=== PATIENT | female | born 1970 | race Caucasian/White ===

== ENCOUNTER → 2017-11-30 10:29 | Outpatient (CLI) | payer OTHER, SELFPAY ==
--- NOTE | 2017-11-30 10:36 | MRI_ITS ---
STUDY: MRI ABDOMEN WITH CONTRAST REASON FOR EXAM: Female, 47 years old. HEMANGIOMA recheck, lesion liver determined to be hemangioma at [facility], has rt side abd and back pain TECHNIQUE: Standardized fat and water weighted pulse sequences were obtained in all 3 orthogonal planes post contrast administration. 8 ml of Gadavist contrast material was administered intravenously. COMPARISON: 09.26.16 mri images with report included with the images. FINDINGS: The visualized lung bases are unremarkable. The visualized portions of the heart are within normal limits. Lobulated T2 hyperintense lesion in the inferior right lobe of the liver. This measures 40 x 33 mm. This does not demonstrate signal dropout on in and out of phase images. Initial contrast examination demonstrates peripheral filling. 4.5 mm T2 hyperintense lesion in the right lobe of the liver. Series 5 image 11. 9.3 mm T2 hyperintense lesion in the left lobe of the liver. Series 5 image 9. Symmetrical focal lesions. Enhancing nodules in the gallbladder suggesting polyps. Normal spleen. Normal pancreas. Normal bilateral adrenal glands. Normal right kidney. Normal left kidney. There is a large hiatal hernia composed mostly of the fundus of the stomach. Normal small intestine. Stool throughout the colon. There is non-visualization of the appendix. There is diffuse atherosclerotic calcification of the abdominal aorta, without a demonstrated aneurysm. Normal inferior vena cava. Normal retroperitoneum. Normal abdominal wall. There are diffuse degenerative changes of the visualized lumbar spine. MRI/MRI Abd WITH and W/O Contrast IMPRESSION: There are 3 visualized lesions in the liver. The largest lesion in the right lobe of the liver correlates with a hemangioma. The 2 smaller lesions in the right and left lobe of the liver enhanced. However it is difficult to discern the enhancement pattern due to their small size. These may also be hemangiomas. Gallbladder polyps. Constipation Electronically Signed: Brian Tom MD at 16:38 EST , Service support ,
== END ==
PROVIDERS: Family Provider Family Medicine; PCP Family Medicine; Visit Provider Internal Medicine Gastroenterology
DX: D18.00 Hemangioma unspecified site (principal)
CPT/HCPCS: 74183; A9585; A4216

== ENCOUNTER → 2018-08-22 15:50 | Outpatient (CLI) | payer OTHER, SELFPAY ==
[2018-08-28 14:09] LABS: HPV Reflexed? NOT INDICATED
== END ==
PROVIDERS: Visit Provider Obstetrics & Gynecology
DX: Z12.4 Encounter for screening for malignant neoplasm of cervix (principal)
CPT/HCPCS: 87624; 88175; G0145

== ENCOUNTER → 2020-11-24 11:30 | Outpatient (CLI) | payer OTHER, SELFPAY ==
[2020-11-27 20:48] LABS: HPV Reflexed? NOT INDICATED
== END ==
PROVIDERS: Visit Provider Obstetrics & Gynecology
DX: Z12.4 Encounter for screening for malignant neoplasm of cervix (principal)
CPT/HCPCS: 88175; G0145

== ENCOUNTER 2020-12-22 11:33 | Day surgery (SDC) | payer OTHER, SELFPAY ==
[2020-12-22] VITALS (7 sets, daily range): BP systolic 94–133; BP diastolic 68–79; PULSE 78–107; RESP 16; TEMP 36.6–36.8; O2SAT 97–100; BMI 29.7
[2020-12-22] MEDS: Lactated Ringers 1,000 ML 100 ML IV (12:00)
[2020-12-22 12:11] LABS: Internal QC Validated? YES +Cl - CLEAR BKGD; Pregnancy, Urine Negative Negative
--- NOTE | 2020-12-22 12:45 | EGD_PTH ---
PATIENT: CARLENE MEMBRENO LOC: EN U#:[id number] AGE/SX: 50/F ROOM: RE12/22/[address]: Dr. Ethan Yanez MD : 1970 BED: DIS: 12/22/2020 SPEC #: [id number] RECD: 12/22/20 13:44 STATUS: SHARONDA RE #: [id number] NATALIE: 12/22/20 12:[address]: Ethan Yanez DEPT: SURGICAL PATHOLOGY RECD BY: Violeta Peacock ENTERED: 12/23/20 07:35 SP TYPE: EGD BIOPSY OTHR DR: Dr. Hans Jett MD Tissues: Gastric mucous membrane Procedures: Surgery Specimen Level IV HEADER OPERATION: EGD - PH probe (MAC) PRE-OP DIAGNOSIS: GERD TISSUE SUBMITTED: Antrum biopsy for histo and H. pylori MICROSCOPIC DIAGNOSIS Antrum biopsy: Mild gastritis. See microscopic description and comment. SJ:kaylee 12/24/2020 COMMENT The results of immunohistochemistry for Helicobacter pylori will be reported separately ([id number]). MICROSCOPIC DESCRIPTION Slides are reviewed. The specimen shows fragments of gastric mucosa with chronic inflammatory cell infiltrates in the lamina propria consisting of lymphocytes and plasma cells, consistent with mild chronic gastritis. GROSS DESCRIPTION Received in fixative is one container labeled with the patient's name and designated antrum biopsy. The specimen consists of one irregular fragment of light gómez soft tissue that measures 0.3 x 0.3 x 0.1 cm. The specimen is totally submitted in one cassette. / RUDI:kaylee 12/23/20 TC:3 CPT: 28890
--- NOTE | 2020-12-22 12:45 | IMM_PTH ---
PATIENT: CARLENE MEMBRENO LOC: EN U#:[id number] AGE/SX: 50/F ROOM: RE12/22/[address]: Dr. Ethan Yanez MD : 1970 BED: DIS: 12/22/2020 SPEC #: [id number] RECD: 12/23/20 09:35 STATUS: SHARONDA REQ #: [id number] NATALIE: 12/22/20 12:[address]: Ethan Yanez DEPT: IMMUNOHISTOCHEMISTRY RECD BY: Neda Alvarado ENTERED: 12/23/20 09:36 SP TYPE: IMMUNO OTHR DR: Dr. Hans Jett MD Tissues: Stomach, NOS Procedures: H Pylori (initial) PHYSICIAN & INSTITUTION [place] [id number] SPECIMEN INFORMATION: Tissue Source: Antrum biopsy Clinical Info: GERD Specimen Number: [id number] CPT code: 07739 METHODOLOGY: Deparaffinized sections of prefer/formalin-fixed tissue or PAP/DQ stained slides are incubated with monoclonal/polyclonal antibodies/oligonucleotide probes. Localization is made via biotin free immunoperoxidase method. Appropriate controls are performed and reacted as expected. Results on target cell population are indicated in the following table: RESULTS: ANTIBODY / CLONE RESULT H Pylori (polyclonal) negative These tests were developed and their performance characteristics determined by [facility]. They may not have been cleared or approved by the U.S. Food and Drug Administration. The FDA has determined that such clearance or approval is not necessary. INTERPRETATION: Antrum, biopsy: Negative for Helicobacter pylori organisms. RUDI:kaylee 12/24/2020
--- NOTE | 2020-12-22 13:02 | PCM.HP.BLA ---
History and Physical Date of Admission: 12/22/20 HISTORY AND PHYSICAL ? Michelle Granados 1970 ? REFERRING PHYSICIAN: ??Claritza Childers PA ? CHIEF COMPLAINT:???Gastroesophageal reflux disease, unspecified whether esophagitis present ?(primary encounter diagnosis)? ? HPI: The patient is a 50 year old female referred for endoscopy. ?Michelle notes no history of colon complaints. ? The patient??notes the following upper complaints:???Michelle?denies abdominal pain.. ?Michelle notes?heartburn. ??Michelle denies?dysphagia. ?Michelle denies?a history of ulcers/ peptic ulcer disease. ? ? Michelle?has??undergone prior endoscopy. ?Patient had an EGD by Dr. Puga in 2017. ?She was told that she has a hiatal hernia. ? The patient is being seen by me today at the request of DrLenin?MAURA Romero?for my opinion and advice regarding Gastroesophageal reflux disease, unspecified whether esophagitis present ?(primary encounter diagnosis).? ? ? PAST MEDICAL HISTORY PAST MEDICAL HISTORY Diagnosis Date ? Abdominal pain, RUQ ? ? Acute pain of right shoulder ? ? Cancer, hepatocellular (HCC) ? ? Vitamin D deficiency ? PAST SURGICAL HISTORY PAST SURGICAL HISTORY Procedure Laterality Date ? PAST SURGICAL HISTORY OF ? 2015 ? bcc ? ? ? CURRENT MEDICATIONS Current Outpatient Medications Medication Sig ? VIORELE, 28, 0.15-0.02 mgx21 /0.01 mg x 5 per tablet ? ? VITAMIN D 50,000 unit capsule ? ? ranitidine (ZANTAC) 150 mg tablet ? ? MULTI-VITAMIN ORAL Take ?by mouth. ? calcium carbonate (CALTRATE) 600 mg (1,500 mg) tab Take 600 mg by mouth. ? No current facility-administered medications for this visit. ? ? ALLERGIES:?Patient has no known allergies. ? PERSONAL HISTORY:? SOCIAL HISTORY Social History ? Tobacco Use ? Smoking status: Never Smoker Substance Use Topics ? Alcohol use: Not on file ? Drug use: Not on file ?? ? FAMILY HISTORY:? FAMILY HISTORY FAMILY HISTORY Problem Relation Age of Onset ? Thyroid Mother ? ? Hypertension Mother ? ? Thyroid Sister ? ? Stroke Maternal Grandmother ? ? Colon Cancer Maternal Grandmother ? ? Hypertension Maternal Grandmother ? ? Coronary Artery Disease Maternal Grandfather ? ? Stroke Paternal Grandfather ? ? ? REVIEW OF SYMPTOMS: ??The review of systems data was entered by the nurse and reviewed by me ? There are no exam notes on file for this visit. ? ? PHYSICAL EXAMINATION: ? General: ?The patient is 50 year old female, well nourished, well hydrated in no acute distress. ?The patient is oriented to time, place, and person. ? VITALS:?There were no vitals taken for this visit.?There is no height or weight on file to calculate BMI.? ? HEENT: ?Normal cephalic, ataumatic, pupils are equally round, sclera are anicteric, mucous membranes are moist, oropharynx is clear. ?Neck has no masses, asymmetry or lymphadenopathy. ?Thyroid is unremarkable. ? Respiratory: ?Clear to auscultation and percussion. ?Normal respiratory excursion and pattern. ? Cardiac: ?Examination is regular rate and rhythm. ? Abdominal exam: ?Soft, nontender, ?with no palpable masses. ?No hepatosplenomegaly. ?No palpable hernias. ? Rectal exam:?exam deferred ? Extremities: ?no clubbing, cyanosis or edema. ?No adenopathy. ? Other: ? LABORATORY VALUES: As Noted ? RADIOLOGIC STUDIES: ?As Noted ? Assessment ? IMPRESSION:?Gastroesophageal reflux disease, unspecified whether esophagitis present ?(primary encounter diagnosis) ? PLAN: ?I plan to perform upper?endoscopy With 48-hour pH probe. ??We discussed the risks and benefits of the planned endoscopy. ?I have informed the patient that complications can occur including failure to complete the endoscopy and perforation. ?The patient had the opportunity to ask questions concerning the planned endoscopy. ?My staff has also explained the procedure to the patient in understandable terms and has given the patient printed material concerning the procedure. ?The patient freely consents to surgery. ? Patient understands that she will need to be off of her proton pump inhibitors for at least 7 days prior to the procedure. ? ? ? Diagnoses:?(K21.9) Gastroesophageal reflux disease, unspecified whether esophagitis present ?(primary encounter diagnosis) ? ? A letter was sent to MAURA Lopez?indicating the above finding for this patient. ?? Return to Clinic: The patient is instructed to follow-up with me?1 week post operatively. ? COVID (Procedure Consent) Procedure Criteria ? Procedure Criteria: Yes Elective ?The surgeon/proceduralist and patient have discussed in detail the risk of exposure to and/or potential harm posed by the COVID-19 virus with having a surgery/procedure at this time versus the risk of??delaying the surgery/procedure. It is not possible to know either the risk of delaying the surgery or procedure or chance of getting an infection with perfect accuracy, but a joint decision was made between the patient and the surgeon/proceduralist ?to proceed at this time with the scheduled surgery/procedure as indicated on the consent form. ? ? Ethan Yanez III, MD I have re-examined the patient. There are no clinical changes since date of exam.
--- NOTE | 2020-12-22 13:27 | OP.EGD_ITS ---
Patient Name: Michelle Granados Procedure Date: 12/22/2020 12:59 PM Date of : 1970 Age: 50 Procedure: Upper GI endoscopy Indications: Heartburn, Gastro-esophageal reflux disease Providers: Ethan Yanez MD Referring MD: Hans Jett Medicines: See the Anesthesia note for documentation of the administered medications Patient Profile: This is a 50 year old female. Refer to note in patient chart for documentation of history and physical. Complications: No immediate complications. Procedure: Pre-Anesthesia Assessment: - Prior to the procedure, a History and Physical was performed, and patient medications and allergies were reviewed. The patient's tolerance of previous anesthesia was also reviewed. The risks and benefits of the procedure and the sedation options and risks were discussed with the patient. All questions were answered, and informed consent was obtained. Prior Anticoagulants: The patient has taken no previous anticoagulant or antiplatelet agents. ASA Grade Assessment: II - A patient with mild systemic disease. After reviewing the risks and benefits, the patient was deemed in satisfactory condition to undergo the procedure. After obtaining informed consent, the endoscope was passed under direct vision. Throughout the procedure, the patient's blood pressure, pulse, and oxygen saturations were monitored continuously. The gastroscope was introduced through the mouth, and advanced to the second part of duodenum. The upper GI endoscopy was accomplished without difficulty. The patient tolerated the procedure well. Scope In: 1:11:53 PM Scope Out: 1:17:40 PM Total Procedure Duration Time 0 hours 5 minutes 47 seconds Findings: The Z-line was regular and was found 34 cm from the incisors. No biopsies or other specimens were collected for this exam. The GODOY capsule with delivery system was introduced through the mouth and advanced into the esophagus, such that the GODOY pH capsule was positioned 28 cm from the incisors, which was 6 cm proximal to the GE junction. The GODOY pH capsule was then deployed and attached to the esophageal mucosa. The delivery system was then withdrawn. Endoscopy was utilized for probe placement and diagnostic evaluation. Diffuse mildly erythematous mucosa without bleeding was found in the prepyloric region of the stomach. Biopsies were taken with a cold forceps for Helicobacter pylori testing. The examined duodenum was normal. No biopsies or other specimens were collected for this exam. A small hiatal hernia was present. Impression: - Z-line regular, 34 cm from the incisors. No specimens collected. - Erythematous mucosa in the prepyloric region of the stomach. Biopsied. - Normal examined duodenum. No specimens collected. - The GODOY pH capsule was deployed. Recommendation: - Discharge patient to home. - Resume previous diet. - Continue present medications. - Await pathology results. - Repeat upper endoscopy (date not yet determined) for surveillance. - Return to my office in 1 week. Procedure Code(s): --- Professional --- 94156, Esophagogastroduodenoscopy, flexible, transoral; with biopsy, single or multiple 63596, Esophagus, gastroesophageal reflux test; with mucosal attached telemetry pH electrode placement, recording, analysis and interpretation Diagnosis Code(s): --- Professional --- K31.89, Other diseases of stomach and duodenum R12, Heartburn K21.9, Gastro-esophageal reflux disease without esophagitis CPT copyright 2017 [employer]. All rights reserved. The codes documented in this report are preliminary and upon grails web application developer review may be revised to meet current compliance requirements. MD Ethan Meade MD 12/22/2020 1:27:40 PM This report has been signed electronically. Number of Addenda: 0 Note Initiated On: 12/22/2020 12:59 PM
--- NOTE | 2020-12-22 13:28 | OP.CCLET_ITS ---
12/22/2020 Hans Jett [address] [place] [address] [place] [address] Re : Upper GI endoscopy procedure for Michelle Granados Dear Dr. Jett This procedure was performed on Tuesday, December 22, 2020. My impressions and recommendations are as follows: Impressions : - Z-line regular, 34 cm from the incisors. No specimens collected. - Erythematous mucosa in the prepyloric region of the stomach. Biopsied. - Normal examined duodenum. No specimens collected. - The GODOY pH capsule was deployed. Recommendations : - Discharge patient to home. - Resume previous diet. - Continue present medications. - Await pathology results. - Repeat upper endoscopy (date not yet determined) for surveillance. - Return to my office in 1 week. My findings are described in the full procedure note, which is enclosed. If I can be of further assistance, please feel free to contact me at Doctor phone number(s): , Fax: [phone], Work: . Sincerely, MD Ethan Meade MD 12/22/2020 1:27:40 PM This report has been signed electronically.
== END 2020-12-22 14:38 | disposition home or self-care (01) ==
LOC: EN 11:33 → AC 11:34
PROVIDERS: Anesthesiology; PCP Family Medicine; Referring Provider Family Medicine; Visit Provider Surgery
PROC: (CPT 43239; principal; 2020-12-22 12:40)
DX: K21.9 Gastro-esophageal reflux disease without esophagitis (principal); K31.89 Other diseases of stomach and duodenum; Z20.828 Contact with and (suspected) exposure to other viral communicable diseases; K44.9 Diaphragmatic hernia without obstruction or gangrene; E55.9 Vitamin D deficiency, unspecified
CPT/HCPCS: 43239; 91035; 81025; 87426; 88305; 88342; C9803; J7120

== ENCOUNTER 2021-02-04 06:53 | Day surgery (SDC) | payer OTHER, SELFPAY ==
[2020-12-22 12:04] VITALS: BMI 29.7
[2021-02-04 07:12] VITALS: BP 135/88; PULSE 79; RESP 20; TEMP 37.1; O2SAT 99
== END 2021-02-04 07:58 | disposition home or self-care (01) ==
LOC: EN 06:54
PROVIDERS: Surgery; PCP Family Medicine; Referring Provider Family Medicine; Visit Provider Surgery
PROC: F00ZJWZ Instrumental Swallowing and Oral Function Assessment using Swallowing Equipment (ICD-10-PCS; CPT 43235; principal; 2021-02-04 06:55)
DX: K21.9 Gastro-esophageal reflux disease without esophagitis (principal)
CPT/HCPCS: 91010

== ENCOUNTER → 2021-07-22 11:54 | Outpatient (CLI) | payer OTHER, SELFPAY ==
--- NOTE | 2021-07-22 11:55 | BI_ITS ---
MAMMOGRAPHY - BILATERAL SCREENING 3-D TOMOSYNTHESIS REASON FOR EXAM: Female, 51 years old. SCREENING PERTINENT HISTORY: No significant family history. TECHNIQUE: 2-D mammograms and 3-D Tomosynthesis of the breast (s) were performed. CAD was performed. COMPARISON: 12/05/2019 FINDINGS: The breast composition is heterogeneously dense that can obscure small breast masses. Scattered benign calcifications are seen. No dense spiculated masses or suspicious microcalcifications are identified. No architectural distortion is identified. There is no skin thickening or retraction. There has been no significant change since the prior study. BI/SCRN MAMM (CAD)W/CHILANGO BILAT IMPRESSION: No mammographic signs of malignancy. Routine yearly mammograms recommended. ASSESSMENT CATEGORY: BIRADS Category 1: Negative. A letter regarding these results will be sent to the patient by the facility within 30 days. FOLLOW UP RECOMMENDATION: Yearly follow up mammogram recommended. (A) Approximately 10% of breast cancers are not detected by mammography. A normal mammogram should not delay biopsy of a clinically suspicious abnormality. Electronically Signed: Danilo Almazan MD at 18:20 EDT Tel , Service support ,
== END ==
PROVIDERS: PCP Family Medicine; Referring Provider Obstetrics & Gynecology; Visit Provider Obstetrics & Gynecology
DX: Z12.31 Encounter for screening mammogram for malignant neoplasm of breast (principal)
CPT/HCPCS: 77063; 77067

== ENCOUNTER → 2023-04-26 | Outpatient (CLI) | payer OTHER, SELFPAY ==
--- NOTE | 2023-04-26 08:48 | BI_ITS ---
MAMMOGRAPHY - BILATERAL SCREENING REASON FOR EXAM: Female, 53 years old. Routine annual screening examination. PERTINENT HISTORY: Non-contributory. TECHNIQUE: Digital bilateral breast chilango (3D mammographic acquisition) in the CC and MLO projections. 2-D mediolateral oblique (MLO) and craniocaudad (CC) views of both breasts were obtained. CAD: Full Field Digital Mammography with Computer Added Detection was performed. COMPARISON: Comparison is made with prior study of July 22, 2021. FINDINGS: Breast Composition: The breasts are heterogeneously dense, which may obscure small masses. There are no dominant masses or suspicious calcifications. Stable small benign appearing bilateral axillary lymph nodes. No other significant abnormalities are identified. There has been no significant change since the prior study. BI/SCRN MAMM (CAD)W/CHILANGO BILAT IMPRESSION: Stable bilateral screening mammogram. Yearly follow-up mammogram recommended. (A) ASSESSMENT CATEGORY: BIRADS Category 2: Benign. A letter regarding these results will be sent to the patient by the facility within 30 days. Approximately 10% of breast cancers are not detected by mammography. A normal mammogram should not delay biopsy of a clinically suspicious abnormality. [id number] Electronically Signed: Mikel Castillo MD at 9:30 EDT ,
== END | disposition home or self-care (01) ==
LOC: OPBI 08:46
PROVIDERS: PCP Family Medicine; Referring Provider Nurse Practitioner Women's Health; Visit Provider Nurse Practitioner Women's Health
DX: Z12.31 Encounter for screening mammogram for malignant neoplasm of breast (principal)
CPT/HCPCS: 77063; 77067

== ENCOUNTER → 2023-05-26 | Outpatient (CLI) | payer OTHER, SELFPAY ==
--- NOTE | 2023-05-26 | VUL_PTH ---
PATIENT: CARLENE MEMBRENO LOC: [facility]#:[id number] AGE/SX: 53/F ROOM: RE05/26/[address]: Dr. Blanche Robb DO : 1970 BED: DIS: 05/26/2023 SPEC #: [id number] RECD: 05/26/23 15:43 STATUS: SHARONDA REQ #: [id number] NATALIE: 05/26/23 00:[address]: Blanche Robb DEPT: SURGICAL PATHOLOGY RECD BY: Romero Negron ENTERED: 05/29/23 09:00 SP TYPE: VULVA BX OTHR DR: Dr. Hans Jett MD Tissues: A - Vulva, NOS B - Endometrium, NOS Procedures: Surgery Specimen Level IV HEADER OPERATION: Vulvar biopsy, endometrial biopsy PRE-OP DIAGNOSIS: N90.89, N93.9 TISSUE SUBMITTED: A - Vulvar biopsy, B - Endometrial biopsy MICROSCOPIC DIAGNOSIS A. Vulva, biopsy: Fibroepithelial polyp, mildly inflamed and with focal viral cytopathic change. B. Endometrium, biopsy: Benign stromal hyperplasia suggestive of exogenous hormonal effect. Mild chronic endometritis. AM:kaylee 05/30/2023 MICROSCOPIC DESCRIPTION Slides are reviewed. GROSS DESCRIPTION A - Received in fixative is one container labeled with the patient's name and designated vulvar biopsy. The specimen consists of one irregular fragment of light gómez soft tissue that measures 1.0 x 0.6 x 0.2 cm. The specimen is totally submitted in one cassette. B - Received in fixative is one container labeled with the patient's name and designated endometrial biopsy. The specimen consists of multiple irregular fragments of reddish-gómez soft tissue that in aggregate measure 1.5 x 1.0 x <0.1 cm. The specimen is totally submitted in one cassette. / AM:kaylee 05/29/2023 TC:3 CPT: 88620 x2
== END | disposition home or self-care (01) ==
LOC: LABSPEC 15:21
PROVIDERS: PCP Family Medicine; Visit Provider Student in an Organized Health Care Education/Training Program
DX: N93.9 Abnormal uterine and vaginal bleeding, unspecified (principal); N90.89 Other specified noninflammatory disorders of vulva and perineum
CPT/HCPCS: 88305

== ENCOUNTER 2024-06-21 09:08 | Day surgery (SDC) | payer OTHER, SELFPAY ==
--- NOTE | 2024-06-18 17:31 | PCM.HP.BLA ---
History and Physical Date of Admission: 06/21/24 Pre-Op History and Physical HPI: The patient is a 54 year old female presenting for pre-operative visit. She is scheduled for hysteroscopy with removal of IUD, for IUD with missing strings on 06/21/24. Procedure discussed along with risks, benefits and complications. Other alternatives discussed for management. Consent form signed? Yes. PAST MEDICAL HISTORY No date: Abdominal pain, RUQ No date: Acute pain of right shoulder No date: Vitamin D deficiency PAST SURGICAL HISTORY 05/18/2017: INSERT INTRAUTERINE DEVICE 2015: PAST SURGICAL HISTORY OF Comment: bcc Current Outpatient Medications Medication Sig Dispense Refill ? esomeprazole magnesium (NEXIUM ORAL) Take by mouth. ? VIORELE, 28, 0.15-0.02 mgx21 /0.01 mg x 5 per tablet (Patient not taking: Reported on 06/14/2024) ? VITAMIN D 50,000 unit capsule ? ranitidine (ZANTAC) 150 mg tablet (Patient not taking: Reported on 06/14/2024) ? MULTI-VITAMIN ORAL Take by mouth. ? calcium carbonate (CALTRATE) 600 mg (1,500 mg) tab Take 600 mg by mouth. No current facility-administered medications for this visit. ALLERGIES: Patient has no known allergies. PERSONAL HISTORY: Social History Tobacco Use ? Smoking status: Never ? Smokeless tobacco: Never Vaping Use ? Vaping status: Never Used Substance Use Topics ? Alcohol use: Not Currently ? Drug use: Never FAMILY HISTORY: FAMILY HISTORY Problem Relation Age of Onset ? Thyroid Mother ? Hypertension Mother ? Thyroid Sister ? Stroke Maternal Grandmother ? Colon Cancer Maternal Grandmother ? Hypertension Maternal Grandmother ? Coronary Artery Disease Maternal Grandfather ? Stroke Paternal Grandfather ? Hypertension Son REVIEW OF SYMPTOMS: GENERAL: denies fevers or chills ENDOCRINOLOGY: has not been on steroids Cardiology : denies palpitations or chest pain Respiratory: denies SOB or cough Hematology: denies history of prolonged bleeding or easy bruising or VTE Allergy: Denies history of personal or family history of allergy to anesthesia PHYSICAL EXAMINATION: VITALS: Blood pressure 122/80, weight 82.1 kg (181 lb). GENERAL: The patient is well nourished, well hydrated in no acute distress. , The patient is oriented to time, place, and person. NECK: Supple. No lynphadenopathy, normal thyroid, no thyromegaly. LUNGS: Clear to auscultation bilaterally. no wheezes, rhonchi or rales HEART: Regular rate and rhythm, Normal heart sounds, and No murmurs or gallops IMPRESSION: IUD strings missing, unable to remove in office PLAN: The risks/benefits/alternatives and personal involved for the planned hysteroscopy with IUD removal were reviewed with the patient. Her questions were answered to her satisfaction and she desires to proceed. Consent was signed. I reviewed with her postop instructions and expectations. I have reviewed and updated past medical and surgical history, medications and allergies Assessment & Plan Assessment/Plan (1) IUD strings lost:
[2024-06-21] VITALS (7 sets, daily range): BP systolic 106–135; BP diastolic 68–93; PULSE 74–84; RESP 16–18; TEMP 36.1–36.6; O2SAT 94–100; BMI 29.7
[2024-06-21] MEDS: Lactated Ringers 1,000 ML 15 ML IV (09:46)
[2024-06-21] MEDS: Acetaminophen 500 MG Tablet 1000 MG PO (09:47)
[2024-06-21] MEDS: Ketorolac 30 MG/ML Syringe IV (09:47)
[2024-06-21 09:51] LABS: Hematocrit 39.5 % (37-47); Hemoglobin 12.1 g/dL (12.0-15.0); Mean Corp Hgb Conc 30.6 g/dL (32-36); Mean Corpuscular Hgb 26.2 pg (27.0-32.0); Mean Corpuscular Volume 85.5 fL (81-99); Mean Platelet Vol. 9.7 fl (6.2-12.0); Platelet Count 234 K/mm3 (150-450); RBC Distribution Width CV 19.7 % (11.6-14.6); RBC Distribution Width SD 60.3 fl (35.1-43.9); Red Blood Count 4.62 M/mm3 (4.2-5.4); White Blood Count 5.3 K/mm3 (4.4-11.0)
--- NOTE | 2024-06-21 10:12 | PRE.ANES_ITS ---
ASA Classification* ASA Classification ASA Classification: 2 Assessment & Plan Anesthesia* Anesthesia Assessment Anesthesia Assessment: Discussed sedation and/or anesthesia options, risks, benefits, and alternatives with patient/parents/legal guardian/POA. Questions invited. The patient/parents/legal guardian/POA seems to understand and agrees to proceed with anesthesia plan. Reviewed the physical assessment, medical history, allergy history and patient home medications list prior to surgery/procedure/anesthetic and documented any changes. Performed airway and anesthesia risk assessments. Anesthesia Type Anesthesia Type: MAC History Source History Obtained from:: Patient and Chart Anesthesia Focused Assessment* Temperature: 97.8 F Pulse Rate: 79 Blood Pressure: 135/93 Respiratory Rate: 16 Pulse Ox: 100 Oxygen Delivery Method: Room Air Airway Assessment Mouth opens: >3 cm Mallampati Score: III Teeth Condition: Caps/Crowns (Patient has couple crowns On molars. All tight.) Neck Range of motion (ROM): Limited ROM (Slight decrease in extension) Focused Labs Anesthesia Preop lab: CBC WBC 5.3 K/mm3 (4.4-11.0) 06/21/24 09:40 RBC 4.62 M/mm3 (4.2-5.4) 06/21/24 09:40 Hgb 12.1 g/dL (12.0-15.0) 06/21/24 09:40 Hct 39.5 % (37-47) 06/21/24 09:40 Plt Count 234 K/mm3 (150-450) 06/21/24 09:40 CHEMISTRY COAG Urine Test Negative Negative 12/22/20 11:55 Pre-Assessment Diagnosis/Proposed Procedure Planned Operative Procedure(s): HYSTEROSCOPY WITH IUD REMOVAL Anesthesia History Anesthesia History - vice president diversity: Anesthesia History - vice president diversity Hx Hospitalization No 06/19/24 10:56 Any Problems With Anesthesia No 06/19/24 10:56 Cholinesterase deficiency No 06/19/24 10:56 You/Your Family Experience No 06/19/24 10:56 fever (hyperthermia) with Relationship Recent Exposure to Contagious No 06/21/24 09:28 Disease Does patient have nerve No 06/19/24 10:56 stimulator Patient instructed to have device shut off --Does patient have Pacemaker No 06/21/24 09:28 or ICD? When Was Last Pacemaker Check QUESTION #4 FULL TEXT: You/Your Family Experience fever (hyperthermia) with Anesthesia Last Oral Intake Last Oral intake: Last Oral Intake NPO since 19:00 06/21/24 09:28 Meds taken in AM with sips of No 06/21/24 09:28 water? Meds patient instructed to take am of surgery PONV PONV - vice president diversity: PONV - vice president diversity Female No 06/19/24 10:56 HX of Motion Sickness No 06/19/24 10:56 HX of N/V After Surgery No 06/19/24 10:56 Non-Smoker Yes 06/19/24 10:56 Duration of Surgery greater No 06/19/24 10:56 than 60 minutes Number of Risk Factors 1 06/19/24 10:56 PONV Score Low Risk 06/19/24 10:56 Height & Weight Height & Weight: Anesthesia: Height & Weight Height 5 ft 5 in 06/21/24 09:28 Weight: 81 kg 06/21/24 09:28 Body Mass Index (BMI) 29.7 06/21/24 09:28 Respiratory Assessment Respiratory Assessment - vice president diversity: Respiratory Tract Infection Hx - vice president diversity Hx Respiratory Tract Infection No 06/19/24 10:56 STOP Sleep Apnea STOP Sleep Apnea - vice president diversity: STOP Sleep Apnea - vice president diversity Hx Hypertension No 06/19/24 10:56 Hx Sleep Apnea No 06/19/24 10:56 CPAP BIPAP Do you snore loudly (louder No 06/19/24 10:56 than talking or can be heard Do you often feel tired/ No 06/19/24 10:56 fatigued/ sleepy during daytime? Has anyone observed you stop No 06/19/24 10:56 breathing during sleep? STOP Results Negative 06/19/24 10:56 QUESTION #5 FULL TEXT : Do you snore loudly (louder than talking or can be heard through closed doors)? Tobacco Use History Tobacco Use History - vice president diversity: Tobacco Use History - vice president diversity Tobacco Use Smoking Status Never smoker 06/19/24 10:56 Hx Tobacco Use No 06/19/24 10:56 Years Smoking Packs Smoked per Day Smoking Cessation Date was within the last 15 years Hx Smoking Cessation Date Hx Smoking Cessation Counseling Hematologic Medial History Hematologic Hx - vice president diversity: Hematologic Medical Hx - executive coach Hx of Blood Transfusion No 06/19/24 10:56 Hx of Transfusion in last 3 No 06/19/24 10:56 Months Date of Last Transfusion (if within last 3 months) Ever experience any problems No 06/19/24 10:56 with transfusion(s)? Specify any problems Hx of Preganancy in last 3 No 06/19/24 10:56 Months Nurse Filling Out Transfusion [facility] 06/19/24 10:56 & Questions: Date: 06/19/24 06/19/24 10:56 Time: 11:02 06/19/24 10:56 Patient unable to answer at this time (ie. confused, unrespo /Reproduction History /Reproductive History - vice president diversity: /Reproductive Hx- vice president diversity Hx Now No 06/19/24 10:56 Gestational Age (in weeks): EDC: Hx Hx Para Hx Section SAB No 06/19/24 10:56 Active Medications Active Medications: Current Medications Generic Name Dose Route Start Last Admin Trade Name Freq PRN Reason Stop Dose Admin Acetaminophen 1,000 mg 06/21/24 11:30 06/21/24 09:47 Acetaminophen 500 Mg Tablet PO 06/21/24 11:31 1,000 mg PREOP ONE Administration Lactated Ringer's 1,000 mls @ 15 mls/hr 06/21/24 09:15 06/21/24 09:46 IV 15 mls/hr .Q48H ROBB Administration Ketorolac Tromethamine 30 mg 06/21/24 11:30 06/21/24 09:47 Ketorolac 30 Mg/Ml Syringe IV 06/21/24 11:31 30 mg PREOP ONE Administration PFSH Medical History Wears glasses Post-menopausal Low iron Migraine headache Gastric reflux Non-smoker Home Medications ?Medication ?Instructions ?Recorded ?Last Taken ?Type multivitamin with minerals 1 ea PO DAILY 12/17/20 Unknown History esomeprazole magnesium 20 mg 20 mg PO DAILY PRN GERD 06/19/24 Unknown History capsule,delayed release (Acid Electronic Engraver (esomeprazole)) ferrous sulfate 325 mg (65 mg 325 mg PO DAILY 06/19/24 Unknown History iron) tablet (Feosol) Allergy/AdvReac Type Severity Reaction Status Date / Time No Known Allergies Allergy Verified 06/19/24 10:54 Surgical History (Updated 06/19/24 @ 11:00 by Simran Lopez) History of esophagogastroduodenoscopy (EGD) Social History Smoking Status: Never smoker Review of Systems (Anesthesia) ROS Narrative System reviewed and no additional complaints, except as documented.
--- NOTE | 2024-06-21 10:24 | PCM.DC ---
Discharge Instructions Diet Discharge Diet: No restrictions Activity May resume sexual activity in: 1 week and 2 weeks Lifting Restrictions: none Dressing / Incision Call your doctor if your incision/area has: Sudden Increased Bleeding and Foul Smelling Discharge Call your doctor if you observe: Fever of 101 or Higher and Using more than 1 pad per hour (for 2 hrs in a row) Follow Up Care Please Follow Up With: Quyen Townsend MD When: You do not need a postoperative appointment. Please call the office or send a dakick message with any questions or concerns. [phone] Test Results: Test results from this visit will be discussed in further detail at your follow-up appointment, if applicable. Discharge Plan Admission Primary Reason for Your Visit: Hysteroscopy with IUD removal Attending Provider: Quyen Townsend Primary Care Provider: Hans Jett Instructions Print Language: Frisian Discharge Orders/Prescriptions Prescriptions: No Action multivitamin with minerals 1 EACH tablet 1 ea PO DAILY esomeprazole magnesium [Acid Investigation Officer (esomeprazole)] 20 mg capsule,delayed release(DR/EC) 20 mg PO DAILY PRN (Reason: GERD) ferrous sulfate [Feosol] 325 mg (65 mg iron) tablet 325 mg PO DAILY Referrals / Follow Up: Hans Jett MD [Primary Care Provider] - Disposition Disposition (needs filled in before D/C Order can be placed): Home, Self Care
--- NOTE | 2024-06-21 10:25 | PCM.OPRPT ---
Problems Associated Problem List Diagnoses (1) IUD strings lost: Report of Operation Date of Procedure: 06/21/24 Pre-Operative Diagnosis: IUD strings lost Post-Operative Diagnosis: same Surgery/Procedure Performed:: hysteroscopy with IUD removal Surgeon: Qyuen Townsend physician coder: Ivory Gallego [id number] Type of Anesthesia: MAC/Supplemental/Local Anesthesiologist: Catherine Samuels Special Medications: none Specimen's removed: none Drains: none Estimated Blood Loss (mL): 10 Fluids Replaced: 500 cc Description of Procedure: The patient was taken to the OR where she was prepped and draped in dorsal lithotomy position. The weighted speculum was placed in the vagina and the anterior lip of the cervix was grasped with a single-tooth tenaculum. A paracervical block was administered with 1% lidocaine with 1-100,000 epinephrine solution. The cervix was dilated serially with Hegar dilators. The 5mm hysteroscope was placed into the uterine cavity and the above findings were noted. Bilateral tubal ostia were identified. The IUD strings were grasped with the hysteroscopic grasper and removed intact. The endometrial cavity was otherwise normal. The instruments were removed from the cervix and vagina. All sponge and needle counts were correct. Vaginal sweep was performed by me. The patient was awakened and taken to the recovery room in stable condition. Hysteroscopic fluid deficit was 100 cc of normal saline Grafts/Implants Used: none Procedure Start Time: 10:32 Procedure Stop Time: 10:40 Complications none
[2024-06-21] MEDS: Lidocaine 1% /Epi 1:100 (20ml) 20 ML Vial (10:35)
--- NOTE | 2024-06-21 10:49 | PCM.POST.ANE ---
Anesthesia: Postop Eval I Current Vital Signs Temperature: 97.8 F Pulse Rate: 84 Blood Pressure: 110/74 Respiratory Rate: 18 Pulse Ox: 96 Oxygen Delivery Method: Room Air Assessment Airway patent: Yes Spontaneous unlabored respirations: Yes Mental status: Awake and Calm nausea: No Vomiting: No Anesthesia Complication: No Fluid Hydration Crystalloid volume administer (ml): 400 Total IV fluid infused: 400 Progress Note Post-operative progress note: denies pain Anesthesia document: Postop Eval 1 completed: Yes
--- NOTE | 2024-06-21 15:49 | POSTOPAN2_ITS ---
Anesthesia Postop Eval I Sum Postop Eval Completion status Anesthesia document: Postop Eval 1 completed: Yes Anesthesia Postop Eval I Summary Anesthesia Postop Eval I Summary: Anesthesia Postop Eval I: Assessment Summary Airway patent Yes 06/21/24 10:50 LUNCHROOM OPERATOR.SCHR Spontaneous unlabored Yes 06/21/24 10:50 LUNCHROOM OPERATOR.SCHR respirations Mental status Awake,Calm 06/21/24 10:50 LUNCHROOM OPERATOR.SCHR nausea No 06/21/24 10:50 LUNCHROOM OPERATOR.SCHR Vomiting No 06/21/24 10:50 [facility] Anesthesia Postop Eval I: Fluid Summary Crystalloid volume administer 400 06/21/24 10:50 LUNCHROOM OPERATOR.SCHR (ml) Colloids volume administered ( ml) Blood Product volume administered (ml) Total IV fluid infused 400 06/21/24 10:50 LUNCHROOM OPERATOR.[facility] Anesthesia Postop Eval I: Summary Notes Anesthesia Complication No 06/21/24 10:50 LUNCHROOM OPERATOR.[facility] Anesthesia Complication Comment: Post-operative progress note denies pain 06/21/24 10:50 LUNCHROOM OPERATOR.[facility] Anesthesia: Postop Eval II Evaluation Mental status: Awake and Calm Pain Level: 1 nausea: No Vomiting: No Complications Anesthesia Complication: No
--- NOTE | 2024-06-21 15:49 | PCM.POSTANE2 ---
Anesthesia Postop Eval I Sum Postop Eval Completion status Anesthesia document: Postop Eval 1 completed: Yes Anesthesia Postop Eval I Summary Anesthesia Postop Eval I Summary: Anesthesia Postop Eval I: Assessment Summary Airway patent Yes 06/21/24 10:50 SHOW DOG TRAINER.SCHR Spontaneous unlabored Yes 06/21/24 10:50 SHOW DOG TRAINER.SCHR respirations Mental status Awake,Calm 06/21/24 10:50 SHOW DOG TRAINER.SCHR nausea No 06/21/24 10:50 SHOW DOG TRAINER.SCHR Vomiting No 06/21/24 10:50 [facility] DO[facility]IN[facility] Anesthesia Postop Eval I: Fluid Summary Crystalloid volume administer 400 06/21/24 10:50 SHOW DOG TRAINER.SCHR (ml) Colloids volume administered ( ml) Blood Product volume administered (ml) Total IV fluid infused 400 06/21/24 10:50 SHOW DOG TRAINER.[facility] Anesthesia Postop Eval I: Summary Notes Anesthesia Complication No 06/21/24 10:50 SHOW DOG TRAINER.[facility] Anesthesia Complication Comment: Post-operative progress note denies pain 06/21/24 10:50 SHOW DOG TRAINER.[facility] Anesthesia: Postop Eval II Evaluation Mental status: Awake and Calm Pain Level: 1 nausea: No Vomiting: No Complications Anesthesia Complication: No
== END 2024-06-21 11:40 | disposition home or self-care (01) ==
LOC: SDC 09:10 → AC 09:12
PROVIDERS: PCP Family Medicine; Referring Provider Obstetrics & Gynecology; Visit Provider Obstetrics & Gynecology
PROC: 0UJD8ZZ Inspection of Uterus and Cervix, Via Natural or Artificial Opening Endoscopic (ICD-10-PCS; CPT 58555; principal; 2024-06-21 10:15)
DX: Z30.432 Encounter for removal of intrauterine contraceptive device (principal); Z79.899 Other long term (current) drug therapy
CPT/HCPCS: 58562; 00952; 85027; J7120; J2405

== ENCOUNTER → 2024-09-13 | Outpatient (CLI) | payer OTHER, SELFPAY ==
--- NOTE | 2024-09-13 13:43 | BI_ITS ---
MAMMOGRAPHY - BILATERAL SCREENING REASON FOR EXAM: Female, 54 years old. Routine annual screening examination. PERTINENT HISTORY: Non-contributory. TECHNIQUE: Digital bilateral breast chilango (3D mammographic acquisition) in the CC and MLO projections. 2-D mediolateral oblique (MLO) and craniocaudad (CC) views of both breasts were obtained. CAD: Full Field Digital Mammography with Computer Added Detection was performed. COMPARISON: Comparison is made with prior study dated April 26, 2023 and July 22, 2021. FINDINGS: Breast Composition: The breasts are heterogeneously dense, which may obscure small masses. There are no dominant masses or suspicious calcifications. Stable small benign-appearing bilateral axillary lymph nodes. No other significant abnormalities are identified. There has been no significant change since the prior study. BI/SCRN MAMM (CAD)W/CHILANGO BILAT IMPRESSION: Stable bilateral screening mammogram. Yearly follow-up mammogram recommended. (A) ASSESSMENT CATEGORY: BIRADS Category 2: Benign. A letter regarding these results will be sent to the patient by the facility within 30 days. Approximately 10% of breast cancers are not detected by mammography. A normal mammogram should not delay biopsy of a clinically suspicious abnormality. [id number] Electronically Signed: Mikel Castillo MD at 9:33 EST ,
== END | disposition home or self-care (01) ==
LOC: OPBI 13:42
PROVIDERS: PCP Family Medicine
DX: Z12.31 Encounter for screening mammogram for malignant neoplasm of breast (principal)
CPT/HCPCS: 77063; 77067